=== PATIENT | female | born 1955 | race Caucasian/White ===

== ENCOUNTER → 2017-02-01 | Outpatient (CLI) | payer OTHER ==
[~2017-02-01] MED LIST: AMLODIPINE BES2.5 MG PO; HYDROCHLOROTHIA25 MG PO; SYNTHROID150 MCG PO
== END | disposition home or self-care (01) ==
LOC: RAD 13:30
DX: N89.9 Noninflammatory disorder of vagina, unspecified (principal); Z90.710 Acquired absence of both cervix and uterus
CPT/HCPCS: 76856

== ENCOUNTER 2018-01-19 21:15 | Emergency (ER) | payer OTHER ==
[~2018-01-19] VITALS: Ht 170.2 cm; Wt 79.1 kg
[2018-01-19 21:38] LABS: HEMATOCRIT 42.6 % (36.0-46.0); HEMOGLOBIN 15.5 G/DL (11.9-15.5); MCHC 36.4 G/DL (30.0-36.0); PLATELET COUNT 305 K/uL (156-360); RBC DIS.WIDTH-CV 11.9 % (11.8-14.6); RED BLOOD COUNT 4.84 M/uL (3.80-5.20); WHITE BLOOD COUNT 8.8 K/uL (4.1-10.2)
[2018-01-19 21:41] LABS: APPEARANCE CLEAR ((CLEAR)); BILIRUBIN NEGATIVE; BLOOD MODERATE; COLOR YELLOW ((YELLOW)); GLUCOSE (STRIP) 50; KETONES 20; LEUKOCYTES LARGE; NITRITE NEGATIVE; PROTEIN (STRIP) 30; SPECIFIC GRAVITY 1.025 (1.000-1.030); UROBILINOGEN 0.2 MG/DL (0.2-1.0)
[2018-01-19 21:46] LABS: ALBUMIN 4.6 g/dL (3.2-4.8); CHLORIDE 100 mEq/L (99-109); POTASSIUM 3.8 mEq/L (3.7-5.4); SODIUM 138 mEq/L (136-147)
[2018-01-19 21:49] LABS: GLUCOSE 160 mg/dL (70-99); TOTAL PROTEIN 7.9 g/dL (6.4-8.3)
[2018-01-19 21:51] LABS: TOTAL BILIRUBIN 0.7 mg/dL (0.0-1.0)
[2018-01-19 21:52] LABS: ALKALINE PHOSPHATASE 153 IU/L (3-129); CREATININE 0.9 mg/dL (0.6-1.3); GFR ESTIMATE (CALCULATED) > 59 mL/min/
[2018-01-19 21:53] LABS: BACTERIA 2+ /HPF; EPITHELIAL CELLS 1+ /HPF; MUCUS 3+ /LPF; UCUL ADDED? YES; WHITE BLOOD CELLS 15-20 /HPF (0-5)
[2018-01-19 21:53] LABS: UREA NITROGEN (BUN) 14 mg/dL (9-23)
[2018-01-19 21:54] LABS: AST (GOT) 29 IU/L (2-34)
[2018-01-19 21:55] LABS: ALT (GPT) 35 IU/L (3-49)
[2018-01-19] MEDS ORDERED: KEFLEX500 MG PO (23:17)
[2018-01-19] MEDS ORDERED: ZOFRAN ODT4 MG PO (23:17)
[2018-01-19 23:36] VITALS: BP 160/86
== END 2018-01-19 23:38 | disposition home or self-care (01) ==
LOC: EME 21:15
DX: N39.0 Urinary tract infection, site not specified (principal); I10 Essential (primary) hypertension
CPT/HCPCS: 80053; 81003; 85027; 87086; 99281; 99284

== ENCOUNTER 2018-01-22 10:19 | Emergency (ER) | payer OTHER ==
[~2018-01-22] VITALS: Ht 170.2 cm; Wt 77.7 kg
[~2018-01-22 10:19] MED LIST changes: +KEFLEX500 MG PO; +ZOFRAN ODT4 MG PO
[2018-01-22 10:49] LABS: HEMATOCRIT 44.5 % (36.0-46.0); HEMOGLOBIN 15.8 G/DL (11.9-15.5); MCH 31.4 PG (29.0-34.0); MCHC 35.5 G/DL (30.0-36.0); MCV 88.5 FL (83-99); PLATELET COUNT 305 K/uL (156-360); RBC DIS.WIDTH-CV 11.9 % (11.8-14.6); RBC DIS.WIDTH-SD 38.7 % (39-53); RED BLOOD COUNT 5.03 M/uL (3.80-5.20); WHITE BLOOD COUNT 10.4 K/uL (4.1-10.2)
[2018-01-22 10:51] LABS: APPEARANCE CLEAR ((CLEAR)); BILIRUBIN NEGATIVE; BLOOD SMALL; COLOR DK YELLOW ((YELLOW)); GLUCOSE (STRIP) NEGATIVE; KETONES NEGATIVE; LEUKOCYTES LARGE; NITRITE NEGATIVE; PROTEIN (STRIP) 30; SPECIFIC GRAVITY 1.021 (1.000-1.030)
[2018-01-22 10:57] LABS: BACTERIA RARE /HPF; EPITHELIAL CELLS RARE /HPF; HYALINE CASTS 40-50 /LPF; MUCUS 1+ /LPF; UCUL ADDED? YES; WHITE BLOOD CELLS 20-30 /HPF (0-5)
[2018-01-22 11:11] LABS: ALBUMIN 4.4 G/DL (3.2-4.8); CHLORIDE 99 MEQ/L (99-109); POTASSIUM 3.1 MEQ/L (3.7-5.4); SODIUM 137 MEQ/L (136-147); TOTAL BILIRUBIN 0.5 MG/DL (0.0-1.0)
[2018-01-22 11:17] LABS: ALKALINE PHOSPHATASE 143 IU/L (3-129); ALT (GPT) 19 IU/L (3-49); AST (GOT) 16 IU/L (2-34); CREATININE 1.2 MG/DL (0.6-1.3); GFR ESTIMATE (CALCULATED) 49 mL/min/; GLUCOSE 114 mg/dL (70-99); TOTAL PROTEIN 7.5 G/DL (6.4-8.3); UREA NITROGEN (BUN) 16 mg/dL (9-23)
[2018-01-22] MEDS ORDERED: PROTONIX40 MG PO (14:18)
[2018-01-22 14:52] VITALS: BP 148/86
== END 2018-01-22 14:52 | disposition home or self-care (01) ==
LOC: EME 10:19
DX: N39.0 Urinary tract infection, site not specified (principal); E87.6 Hypokalemia; K31.89 Other diseases of stomach and duodenum; I10 Essential (primary) hypertension
CPT/HCPCS: 74176; 80053; 81003; 85027; 87086; 99281; 99284; J0696